=== PATIENT | male | born 1970 | race African-American/Black ===

== ENCOUNTER 2017-08-11 11:28 | Inpatient (IN) | payer OTHER ==
[2017-08-11 11:54] VITALS: BMI 26.8
--- NOTE | 2017-08-11 13:26 | HP ---
CIWA Score - CIWA Score Nausea/Vomitin-Mild Nausea/No Vomiting Muscle Tremors: 4-Moderate,w/Arms Extend Anxiety: 4-Mod. Anxious/Guarded Agitation: 4-Moderately Restless Paroxysmal Sweats: 1-Minimal Palms Moist Orientation: 3-Disoriented Date>2 days Tacttile Disturbances: 2-Mild Itch/Numbness/Burn Auditory Disturbances: 0-None Visual Disturbances: 0-None Headache: 0-None Present CIWA-Ar Total Score: 19 Admission ROS S - HPI Chief Complaint: withdrawal sx Allergies/Adverse Reactions: Allergies Allergy/AdvReac Type Severity Reaction Status Date / Time No Known Allergies Allergy Verified 08/11/17 13:22 History of Present Illness: 47 years old male with long history of alcohol nicotine dependence has depression is admitted to detox Exam Limitations: No Limitations - Ebola screening Have you traveled outside of the country in the last 21 days: No (N) Have you had contact with anyone from an Ebola affected area: No Have you been sick,other than usual withdrawal symptoms: No Do you have a fever: No - Review of Systems Constitutional: Changes in sleep, Weight Stable EENT: reports: No Symptoms Reported Respiratory: reports: No Symptoms reported Cardiac: reports: No Symptoms Reported GI: reports: Nausea, Poor Fluid Intake, Abdominal cramping : reports: No Symptoms Reported Musculoskeletal: reports: No Symptoms Reported Integumentary: reports: Lesions (arms legs lateral trunk upper chest) Neuro: reports: Tremors Endocrine: reports: No Symptoms Reported Hematology: reports: No Symptoms Reported Psychiatric: reports: Judgement Intact, Anxious, Depressed Other Systems: Reviewed and Negative Patient History - Patient Medical History Hx Anemia: No Hx Asthma: No Hx Chronic Obstructive Pulmonary Disease (COPD): No Hx Cancer: No Hx Cardiac Disorders: No Hx Congestive Heart Failure: No Hx Hypertension: No Hx Hypercholesterolemia: No Hx Pacemaker: No HX Cerebrovascular Accident: No Hx Seizures: No Hx Dementia: No Hx Diabetes: No Hx Gastrointestinal Disorders: No Hx Liver Disease: No Hx Genitourinary Disorders: No Hx Sexually Transmitted Disorders: No Hx Renal Disease (ESRD): No Hx Thyroid Disease: No Hx Human Immunodeficiency Virus (HIV): No Hx Hepatitis C: No Hx Depression: Yes Hx Suicide Attempt: No Hx Bipolar Disorder: No Hx Schizophrenia: No - Patient Surgical History Past Surgical History: Yes Other Surgical History: 2010 right neck + right arm from [facility] Anesthesia Reaction: No - PPD History Previous Implant?: Yes Documented Results: Negative w/o proof Implanted On Prior [facility] Admission?: No PPD to be Administered?: Yes - Smoking Cessation Smoking history: Current every day smoker Have you smoked in the past 12 months: Yes Aproximately how many cigarettes per day: 6 Cigars Per Day: 0 Hx Chewing Tobacco Use: No Initiated information on smoking cessation: Yes 'Breaking Loose' booklet given: 08/11/17 - Substance & Tx. History Hx Alcohol Use: Yes Hx Substance Use: No Substance Use Type: Alcohol Hx Substance Use Treatment: No (1st detox) - Substances Abused Alcohol Route: Oral Frequency: Daily Amount used: vodka x 2 pint+12ozx6 Age of first use: 15 Date of Last Use: 08/10/17 Family Disease History - Family Disease History Family Disease History: Heart Disease: Father, CA: Mother Admission Physical Exam [facility] - Vital Signs Vital Signs: Vital Signs - 24 hr 08/11/17 11:51 Temperature 97.9 F Pulse Rate 81 Respiratory 18 Rate Blood Pressure 155/86 - Physical General Appearance: Yes: Appropriately Dressed, Moderate Distress, Tremorous, Irritable, Sweating, Anxious HEENTM: Yes: Hearing grossly Normal, Normal ENT Inspection, Normocephalic, Normal Voice Respiratory: Yes: Chest Non-Tender, Lungs Clear, Normal Breath Sounds, No Respiratory Distress, No Accessory Muscle Use Neck: Yes: Supple, Trachea in good position Breast: Yes: Breasts Symetrical Cardiology: Yes: Regular Rhythm, Regular Rate, S1, S2 Abdominal: Yes: Normal Bowel Sounds, Non Tender, Soft Genitourinary: Yes: Within Normal Limits Back: Yes: Normal Inspection Musculoskeletal: Yes: full range of Motion, Gait Steady Extremities: Yes: Normal Inspection (psoriasis), Normal Range of Motion, Non- Tender, Tremors Neurological: Yes: Alert, Motor Strength 5/5, Normal Response, Depressed Affect Integumentary: Yes: Warm, Rash (psoriasis) Lymphatic: Yes: Within Normal Limits - Diagnostic (1) Alcohol dependence with uncomplicated withdrawal Current Visit: Yes Status: Acute (2) Depression (emotion) Current Visit: Yes Status: Suspected Qualifiers: Depression Type: dysthymia Qualified Code(s): F34.1 - Dysthymic disorder (3) Nicotine dependence Current Visit: Yes Status: Acute Qualifiers: Nicotine product type: cigarettes Substance use status: in withdrawal Qualified Code(s): F17.213 - Nicotine dependence, cigarettes, with withdrawal Cleared for Admission [facility] - Detox or Rehab [facility] Level of Care: Medically Managed Detox Regimen/Protocol: Librium [facility] Breath Alcohol Content Breath Alcohol Content: 0 Urine Drug Screen - Results Drug Screen Negative: Yes
[2017-08-11] MEDS ORDERED: guaiFENesin/D-METHORPHAN HB 10 ML UNIT-DOSE CUPS PO PRN (13:31)
[2017-08-11] MEDS ORDERED: NICOTINE POLACRILEX 2 MG GUM BUC PRN (13:31)
[2017-08-11] MEDS ORDERED: IBUPROFEN 400 MG TABLET (FP) PO PRN (13:31)
[2017-08-11] MEDS ORDERED: chlordiazePOXIDE HCL 25 MG CAPSULE PO PRN (13:31)
[2017-08-11] MEDS ORDERED: MENTHOL/PHENOL 1 EACH UD MM PRN (13:31)
[2017-08-11] MEDS ORDERED: MAG HYDROX/AL HYDROX/SIMETH 30 ML UNIT-DOSE CUP PO PRN (13:31)
[2017-08-11] MEDS ORDERED: ACETAMINOPHEN 325 MG TABLET (FP) PO PRN (13:31)
[2017-08-11] MEDS ORDERED: P-EPHED 60MG/TRIPROLIDI 2.5MG TABLET PO PRN (13:31)
[2017-08-11] MEDS ORDERED: MAGNESIUM CITRATE 300 ML BOTTLE PO PRN (13:31)
[2017-08-11] MEDS ORDERED: MAGNESIUM HYDROX 2400MG/30ML ORAL SUSPENSION 30 ML CUP PO PRN (13:31)
[2017-08-11] MEDS ORDERED: LOPERAMIDE HCL 2 MG CAPSULE PO PRN (13:31)
[2017-08-11] MEDS ORDERED: COLLOIDAL OATMEAL 1 BAR EACH TP PRN (13:39)
[2017-08-11] MEDS: chlordiazePOXIDE HCL 25 MG CAPSULE PO SCH ×2 (16:55→22:24)
[2017-08-11] MEDS: THIAMINE HCL 100 MG TABLET (FP) PO SCH (22:24)
[2017-08-11] MEDS: MINERAL OIL/PETROLAT/WATER TOPICAL CREAM 113 GM JAR TP SCH (22:26)
[2017-08-11 23:08] LABS: URINE APPEARANCE CLEAR; URINE BILIRUBIN NEGATIVE (NEGATIVE); URINE BLOOD NEGATIVE (NEGATIVE); URINE COLOR YELLOW; URINE GLUCOSE (UA) NEGATIVE (NEGATIVE); URINE KETONE NEGATIVE (NEGATIVE); URINE LEUK ESTERASE NEGATIVE (NEGATIVE); URINE NITRITE NEGATIVE (NEGATIVE); URINE PROTEIN NEGATIVE (NEGATIVE); URINE UROBILINOGEN 4.0 E.U/dl mg/dL (0.2-1.0)
[2017-08-12] MEDS: chlordiazePOXIDE HCL 25 MG CAPSULE PO SCH ×5 (06:19→22:13)
[2017-08-12 09:56] LABS: HEMATOCRIT 38.9 % (35.4-49); HEMOGLOBIN 12.5 GM/dL (11.7-16.9); MCH 31.2 pg (25.7-33.7); MCHC 32.2 g/dl (32.0-35.9); MEAN CELL VOLUME 97.1 fl (80-96); MEAN PLT VOLUME 8.9 fl (7.5-11.1); PLATELET COUNT 228 K/MM3 (134-434); RBC 4.01 M/mm3 (4.00-5.60); RDW 13.7 % (11.9-15.9); WHITE BLOOD COUNT 8.8 K/mm3 (4.0-10.0)
[2017-08-12 10:41] LABS: CHLORIDE 100 mmol/L (98-107); POTASSIUM 3.6 mmol/L (3.5-5.1); SODIUM 139 mmol/L (136-145)
[2017-08-12 10:46] LABS: ALBUMIN 3.8 g/dl (3.4-5.0); ALK PHOS 76 U/L (45-117); ANION GAP 9 (8-16); BILIRUBIN,TOTAL 0.5 mg/dL (0.2-1.0); BLOOD UREA NITROGEN 7 mg/dL (7-18); CALCIUM 9.2 mg/dL (8.5-10.1); CO2 30 mmol/L (21-32); CREATININE 0.8 mg/dL (0.7-1.3); GLUCOSE,RANDOM 92 mg/dL (74-106); SGOT/AST 68 U/L (15-37); SGPT/ALT 65 U/L (12-78); TOT PROT 7.4 g/dl (6.4-8.2)
[2017-08-12] MEDS: PRENATAL VITAMINS W/ FOLIC ACID TABLET (FP) PO SCH (10:55)
[2017-08-12] MEDS: NICOTINE 14 MG/24 HOURS TOPICAL PATCH TD SCH (10:55)
--- NOTE | 2017-08-12 12:45 | PN ---
[facility] CIWA - CIWA Score Nausea/Vomitin-No Nausea/No Vomiting Muscle Tremors: 3 Anxiety: 4-Mod. Anxious/Guarded Agitation: 2 Paroxysmal Sweats: 2 Orientation: 0-Oriented Tacttile Disturbances: 3-Moderate Itch/Numb/Burn Auditory Disturbances: 0-None Visual Disturbances: 3-Moderate Sensitivity Headache: 0-None Present CIWA-Ar Total Score: 17 BHS Progress Note (SOAP) Subjective: Interrupted sleep, Tremors, Fatigue, Sweating. Objective: PT. A & O X 3, OBSERVED AMBULATING ON UNIT. NO ACUTE DISTRESS. 08/12/17 12:42 Vital Signs Temperature 96.2 F L 08/12/17 09:58 Pulse Rate 76 08/12/17 09:58 Respiratory Rate 20 08/12/17 09:58 Blood Pressure 119/83 08/12/17 09:58 O2 Sat by Pulse Oximetry (%) Laboratory Tests 08/11/17 08/12/17 08/12/17 22:50 05:45 05:45 WBC 8.8 RBC 4.01 Hgb 12.5 Hct 38.9 MCV 97.1 H MCH 31.2 MCHC 32.2 RDW 13.7 Plt Count 228 MPV 8.9 Sodium 139 Potassium 3.6 Chloride 100 Carbon Dioxide 30 Anion Gap 9 BUN 7 Creatinine 0.8 Creat Clearance w eGFR > 60 Random Glucose 92 Calcium 9.2 Total Bilirubin 0.5 AST 68 H ALT 65 Alkaline Phosphatase 76 Total Protein 7.4 Albumin 3.8 Urine Color Yellow Urine Appearance Clear Urine pH 7.0 Ur Specific [place] 1.014 Urine Protein Negative Urine Glucose (UA) Negative Urine Ketones Negative Urine Blood Negative Urine Nitrite Negative Urine Bilirubin Negative Urine Urobilinogen 4.0 e.u/dl Ur Leukocyte Esterase Negative RPR Titer 08/12/17 05:45 WBC RBC Hgb Hct MCV MCH MCHC RDW Plt Count MPV Sodium Potassium Chloride Carbon Dioxide Anion Gap BUN Creatinine Creat Clearance w eGFR Random Glucose Calcium Total Bilirubin AST ALT Alkaline Phosphatase Total Protein Albumin Urine Color Urine Appearance Urine pH Ur Specific [place] Urine Protein Urine Glucose (UA) Urine Ketones Urine Blood Urine Nitrite Urine Bilirubin Urine Urobilinogen Ur Leukocyte Esterase RPR Titer Nonreactive LABS NOTED. Assessment: 08/12/17 12:43 WITHDRAWAL SYMPTOMS. Plan: CONTINUE DETOX.
--- NOTE | 2017-08-12 14:00 | EKG ---
Test Reason : Blood Pressure : / mmHG Vent. Rate : 072 BPM Atrial Rate : 072 BPM P-R Int : 122 ms QRS Dur : 088 ms QT Int : 372 ms P-R-T Axes : 051 029 025 degrees QTc Int : 407 ms NORMAL SINUS RHYTHM NORMAL ECG NO PREVIOUS ECGS AVAILABLE Confirmed by MD Oly, Dario ([id number]) on 08/12/2017 2:00:08 PM Referred By: Confirmed By:Dario Aldridge MD
--- NOTE | 2017-08-12 14:29 | CONSULT ---
[facility] Psychiatric Consult - Data Date of interview: 08/12/17 Admission source: [facility] Identifying data: Pt. is a 47 year old single male, father of two, unemployed and homeless. This [place] patient[place] [facility] Pt. admitted to for alcohol dependence. Substance Abuse History: Following information confirmed with Mr. Ramirez: Smoking Cessation. Smoking history: Current every day smoker. Have you smoked in the past 12 months: Yes. Aproximately how many cigarettes per day: 6. Cigars Per Day: 0. Hx Chewing Tobacco Use: No. Initiated information on smoking cessation: Yes. 'Breaking Loose' booklet given: 08/11/17. - Substance & Tx. History. Hx Alcohol Use: Yes. Hx Substance Use: No. Substance Use Type : Alcohol. Hx Substance Use Treatment: No (1st detox). - Substances Abused. * * Alcohol. Route: Oral. Frequency: Daily. Amount used: vodka x 2 pint+ 12ozx6. Age of first use: 15. Date of Last Use: 08/10/17 Medical History: Denies. Psychiatric History: Pt. reports approximately five psychiatric hospitalizations. States he was most recently admitted to [facility] in November 2016 for depression. Pt. reports outpatient care at a private clinic in [place]. Claims to be on psychotrophic medications but is unable to recall the names and dosages. Pt. unaware of his diagnosis. Pt. is a poor historian. Patient's pharmacy called, [facility] on [address], #[phone] and able to speak to phamacist staff. Staff stated patient picked up a prescription of risperdal 0.5mg qhs and Mirtzapine 7.5mg qhs on Feb 18, 2017 and Lexapro 10mg in August of 2009. Pt. denies h/o suicide attempts. Pt. reports taking the risperdal and mirtzapine a few days ago. Pt. denies suicidal and homicidal ideation. Physical/Sexual Abuse/Trauma History: Denies. Mental Status Exam - Mental Status Exam Alert and Oriented to: Time, Place, Person Cognitive Function: Fair Patient Appearance: Well Groomed Mood: Euthymic Affect: Mood Congruent Patient Behavior: Guarded, Cooperative Speech Pattern: Delayed Voice Loudness: Moderately Soft/Quiet Thought Process: Goal Oriented Thought Disorder: Not Present Hallucinations: Denies Suicidal Ideation: Denies Homicidal Ideation: Denies Insight/Judgement: Poor Sleep: Fair Appetite: Good Muscle strength/Tone: Normal Gait/Station: Normal Psychiatric Findings - Problem List ([place] 1, 2,3) (1) Alcohol dependence with uncomplicated withdrawal Status: Acute (2) Nicotine dependence Status: Acute Qualifiers: Nicotine product type: cigarettes Substance use status: in withdrawal Qualified Code(s): F17.213 - Nicotine dependence, cigarettes, with withdrawal (3) Substance induced mood disorder Status: Suspected - Initial Treatment Plan Initial Treatment Plan: Psychoeducation provided. Detoxification in provided. Risperdal 0.5mg qhs and Mirtzapine 7.5 mg qhs ordered. Benefits and side effects discussed. Pt. made aware of the risk of abnormal involunatry movements, gynecomastia, and hyperprolactinemia. Verbal consent given. Will continue to monitor.
[2017-08-12] MEDS: THIAMINE HCL 100 MG TABLET (FP) PO SCH (22:13)
[2017-08-12] MEDS: risperiDONE 0.5 MG TABLET (FP) PO SCH (22:13)
[2017-08-12] MEDS: MIRTAZAPINE 15 MG TABLET (FP) PO SCH (22:14)
[2017-08-12] MEDS: MINERAL OIL/PETROLAT/WATER TOPICAL CREAM 113 GM JAR TP SCH (22:16)
[2017-08-13] MEDS: chlordiazePOXIDE HCL 25 MG CAPSULE PO SCH ×2 (06:00→10:47)
[2017-08-13] MEDS: PRENATAL VITAMINS W/ FOLIC ACID TABLET (FP) PO SCH (10:47)
[2017-08-13] MEDS: NICOTINE 14 MG/24 HOURS TOPICAL PATCH TD SCH (10:48)
--- NOTE | 2017-08-13 12:25 | PN ---
[facility] CIWA - CIWA Score Nausea/Vomitin-No Nausea/No Vomiting Muscle Tremors: 2 Anxiety: 4-Mod. Anxious/Guarded Agitation: 3 Paroxysmal Sweats: 2 Orientation: 2-Disoriented Date<2 days Tacttile Disturbances: 2-Mild Itch/Numbness/Burn Auditory Disturbances: 0-None Visual Disturbances: 1-Very Mild Sensitivity Headache: 0-None Present CIWA-Ar Total Score: 16 S Progress Note (SOAP) Subjective: Anxious, Tremors, Sweating. Objective: PT. A & O X 2 (UNCERTAIN ABOUT CURRENT DAY/ DATE). PT. OBSERVED AMBULATING ON UNIT. NO ACUTE DISTRESS. 08/13/17 12:23 Vital Signs Temperature 97.4 F L 08/13/17 09:52 Pulse Rate 85 08/13/17 09:52 Respiratory Rate 18 08/13/17 09:52 Blood Pressure 109/74 08/13/17 09:52 O2 Sat by Pulse Oximetry (%) Laboratory Tests 08/11/17 08/12/17 08/12/17 22:50 05:45 05:45 WBC 8.8 RBC 4.01 Hgb 12.5 Hct 38.9 MCV 97.1 H MCH 31.2 MCHC 32.2 RDW 13.7 Plt Count 228 MPV 8.9 Sodium 139 Potassium 3.6 Chloride 100 Carbon Dioxide 30 Anion Gap 9 BUN 7 Creatinine 0.8 Creat Clearance w eGFR > 60 Random Glucose 92 Calcium 9.2 Total Bilirubin 0.5 AST 68 H ALT 65 Alkaline Phosphatase 76 Total Protein 7.4 Albumin 3.8 Urine Color Yellow Urine Appearance Clear Urine pH 7.0 Ur Specific [place] 1.014 Urine Protein Negative Urine Glucose (UA) Negative Urine Ketones Negative Urine Blood Negative Urine Nitrite Negative Urine Bilirubin Negative Urine Urobilinogen 4.0 e.u/dl Ur Leukocyte Esterase Negative RPR Titer 08/12/17 05:45 WBC RBC Hgb Hct MCV MCH MCHC RDW Plt Count MPV Sodium Potassium Chloride Carbon Dioxide Anion Gap BUN Creatinine Creat Clearance w eGFR Random Glucose Calcium Total Bilirubin AST ALT Alkaline Phosphatase Total Protein Albumin Urine Color Urine Appearance Urine pH Ur Specific [place] Urine Protein Urine Glucose (UA) Urine Ketones Urine Blood Urine Nitrite Urine Bilirubin Urine Urobilinogen Ur Leukocyte Esterase RPR Titer Nonreactive LABS NOTED. Assessment: 08/13/17 12:24 WITHDRAWAL SYMPTOMS. Plan: CONTINUE DETOX. INCREASE DAILY PO FLUID INTAKE.
[2017-08-13] MEDS: chlordiazePOXIDE 5 MG CAPSULE PO SCH ×2 (18:17→22:07)
[2017-08-13] MEDS: THIAMINE HCL 100 MG TABLET (FP) PO SCH (22:07)
[2017-08-13] MEDS: MIRTAZAPINE 15 MG TABLET (FP) PO SCH (22:08)
[2017-08-13] MEDS: risperiDONE 0.5 MG TABLET (FP) PO SCH (22:08)
[2017-08-13] MEDS: MINERAL OIL/PETROLAT/WATER TOPICAL CREAM 113 GM JAR TP SCH (22:49)
[2017-08-14] MEDS: chlordiazePOXIDE 5 MG CAPSULE PO SCH ×2 (05:21→10:19)
[2017-08-14] MEDS: NICOTINE 14 MG/24 HOURS TOPICAL PATCH TD SCH (10:19)
[2017-08-14] MEDS: PRENATAL VITAMINS W/ FOLIC ACID TABLET (FP) PO SCH (10:19)
--- NOTE | 2017-08-14 12:01 | PN ---
[facility] Progress Note (SOAP) Subjective: Constipation, Stomach Cramping, Anxious. Objective: PT. A & O X 3, OBSERVED AMBULATING ON UNIT. NO ACUTE DISTRESS. 08/14/17 12:00 Vital Signs Temperature 98.6 F 08/14/17 09:30 Pulse Rate 83 08/14/17 09:30 Respiratory Rate 18 08/14/17 09:30 Blood Pressure 120/84 08/14/17 09:30 O2 Sat by Pulse Oximetry (%) Laboratory Tests 08/11/17 08/12/17 08/12/17 22:50 05:45 05:45 WBC 8.8 RBC 4.01 Hgb 12.5 Hct 38.9 MCV 97.1 H MCH 31.2 MCHC 32.2 RDW 13.7 Plt Count 228 MPV 8.9 Sodium 139 Potassium 3.6 Chloride 100 Carbon Dioxide 30 Anion Gap 9 BUN 7 Creatinine 0.8 Creat Clearance w eGFR > 60 Random Glucose 92 Calcium 9.2 Total Bilirubin 0.5 AST 68 H ALT 65 Alkaline Phosphatase 76 Total Protein 7.4 Albumin 3.8 Urine Color Yellow Urine Appearance Clear Urine pH 7.0 Ur Specific [place] 1.014 Urine Protein Negative Urine Glucose (UA) Negative Urine Ketones Negative Urine Blood Negative Urine Nitrite Negative Urine Bilirubin Negative Urine Urobilinogen 4.0 e.u/dl Ur Leukocyte Esterase Negative RPR Titer 08/12/17 05:45 WBC RBC Hgb Hct MCV MCH MCHC RDW Plt Count MPV Sodium Potassium Chloride Carbon Dioxide Anion Gap BUN Creatinine Creat Clearance w eGFR Random Glucose Calcium Total Bilirubin AST ALT Alkaline Phosphatase Total Protein Albumin Urine Color Urine Appearance Urine pH Ur Specific [place] Urine Protein Urine Glucose (UA) Urine Ketones Urine Blood Urine Nitrite Urine Bilirubin Urine Urobilinogen Ur Leukocyte Esterase RPR Titer Nonreactive LABS NOTED. Assessment: 08/14/17 12:00 WITHDRAWAL SYMPTOMS. Plan: CONTINUE DETOX. INCREASE DAILY PO FLUID INTAKE.
[2017-08-14] MEDS ORDERED: hydrOXYzine PAMOATE 50 MG CAPSULE (FP) PO ONE (15:30)
--- NOTE | 2017-08-14 16:38 | PN ---
Psychiatric Progress Note Vital Signs: Vital Signs Period Temp Pulse Resp BP Sys/Snyder Pulse Ox Last 24 Hr 96.9 F-98.6 F 77-83 18-18 111-120/79-85 Date of Session: 08/14/17 Chief Complaint:: "I feeling like jumping through the window" ROS: unremarkable Current Medications: Active Medications Generic Name Dose Route Start Last Admin Trade Name Freq PRN Reason Stop Dose Admin Acetaminophen 650 mg 08/11/17 13:31 Tylenol - PO Q4H PRN FEVER Al Hydroxide/Mg Hydroxide 30 ml 08/11/17 13:31 Mylanta Oral Suspension - PO Q6H PRN DYSPEPSIA Chlordiazepoxide HCl 10 mg 08/14/17 17:00 Librium - PO 08/15/17 11:01 [id number] CATHERINE Colloidal Oatmeal 1 applic 08/11/17 13:39 08/11/17 22:29 Aveeno Soap - TP 1 applic DAILY PRN Administration HYGEINE Eucalyptus/Menthol/Phenol/Sorbitol 1 each 08/11/17 13:31 Cepastat Lozenge - MM Q4H PRN SORE THROAT Guaifenesin 10 ml 08/11/17 13:31 Robitussin Dm - PO Q6H PRN COUGH Ibuprofen 400 mg 08/11/17 13:31 Motrin - PO Q6H PRN PAIN LEVEL 4-6 Loperamide HCl 4 mg 08/11/17 13:31 Imodium - PO Q6H PRN DIARRHEA Magnesium Citrate 300 ml 08/11/17 13:31 Citroma - PO Q48H PRN CONSTIPATION Magnesium Hydroxide 30 ml 08/11/17 13:31 Milk Of Magnesia - PO DAILY PRN CONSTIPATION Mirtazapine 7.5 mg 08/12/17 22:00 08/13/17 22:08 Remeron - PO 7.5 mg HS CATHERINE Administration Multi-Ingredient Lotion 1 applic 08/11/17 22:00 08/13/17 22:49 Eucerin (Small Jar) - TP Not Given HS CATHERINE Nicotine 14 mg 08/12/17 10:00 08/14/17 10:19 Nicoderm Patch - TD Not Given DAILY CATHERINE Nicotine Polacrilex 2 mg 08/11/17 13:31 Nicorette Gum - BUC Q2H PRN NICOTINE REPLACEMENT RX Multivit/Folic Acid/Iron 1 tab 08/12/17 10:00 08/14/17 10:19 Vitamins ([facility]) - PO 1 tab DAILY CATHERINE Administration Pseudoephedrine/Triprolidine 1 combo 08/11/17 13:31 Actifed - PO TID PRN NASAL CONGESTION Risperidone 0.5 mg 08/12/17 22:00 08/13/17 22:08 Risperdal - PO 0.5 mg HS CATHERINE Administration Thiamine HCl 100 mg 08/11/17 22:00 08/13/17 22:07 Vitamin B1 - PO 100 mg HS CATHERINE Administration Medication(s) Change(s): One time dose of vistaril 50mg ordered. Current Side Effect: No Lab tests ordered: No Lab tests reviewed: Yes Provider note:: Innovation Manager contacted by staff on [facility] reguarding patient's suicidal comment, " I just want to jump out the window". Innovation Manager approached patient concerning his suicidal statment. Pt. reports feelings of frustration after being notified that DSS (department of social service) "cut off his insurance." Pt. was ready to be discharged to a termite technician facility as early as tomorrow but due to his lack of insurance patient will not be placed at a termite technician facility. Pt. states he became frustrated and stated, " I just want to jump out the window." Pt. denies thought or urges to hurt himself and stated that his negative comment was a "figure of speech" but was not having thoughts to hurt himself. Pt. made aware that comments in reference to hurting himself or others are taken very serious and the need for a psychatric evaluation is immediately neccessary. As per history, patient denies h/o suicide attempt. Pt. able to express his frustration. Patient's feeling acknowledged. Psychoeducation provided. Patient was satisifed and receptive to feedback. One time dose of vistaril 50mg given to patient. Medication with good effect. Will continue to monitor patient. Total face to face time:: 40 Mental Status Exam - Mental Status Exam Alert and Oriented to: Time, Place, Person Cognitive Function: Good Patient Appearance: Well Groomed Mood: Anxious, Hopeful (Patient agitated and anxious but able to calm down.) Affect: Appropriate Patient Behavior: Cooperative, Agitated (Pt agitated at first then able to cooperate with teletypewriter operator. ) Speech Pattern: Appropriate Voice Loudness: Normal Thought Process: Goal Oriented Thought Disorder: Not Present Hallucinations: Denies Suicidal Ideation: Denies Homicidal Ideation: Denies Insight/Judgement: Poor Sleep: Fair Appetite: Fair Muscle strength/Tone: Normal Gait/Station: Normal Psychiatric Treatment Plan - Problem List (1) Alcohol dependence with uncomplicated withdrawal Current Visit: Yes (2) Nicotine dependence Current Visit: Yes Qualifiers: Nicotine product type: cigarettes Substance use status: in withdrawal Qualified Code(s): F17.213 - Nicotine dependence, cigarettes, with withdrawal (3) Substance induced mood disorder Current Visit: Yes
[2017-08-14] MEDS: chlordiazePOXIDE HCL 10 MG CAPSULE PO SCH ×2 (17:03→22:06)
[2017-08-14] MEDS: MINERAL OIL/PETROLAT/WATER TOPICAL CREAM 113 GM JAR TP SCH (22:05)
[2017-08-14] MEDS: THIAMINE HCL 100 MG TABLET (FP) PO SCH (22:06)
[2017-08-14] MEDS: risperiDONE 0.5 MG TABLET (FP) PO SCH (22:06)
[2017-08-14] MEDS: MIRTAZAPINE 15 MG TABLET (FP) PO SCH (22:06)
[2017-08-15] MEDS: chlordiazePOXIDE HCL 10 MG CAPSULE PO SCH (05:45)
[2017-08-15 09:42] VITALS: BP 114/81; PULSE 83; TEMP 97
--- NOTE | 2017-08-15 11:57 | DS ---
[facility] Detox Discharge Summary Admission Date: 08/11/17 Discharge Date: 08/15/17 - History Present History: Alcohol Dependence Additional Comments: PATIENT GOING TO [facility] ([facility]) FOR AFTERCARE. PATIENT WAS DISCHARGED FROM DETOX UNIT IN STABLE MEDICAL CONDITION. Pertinent Past History: Depression, Nicotine Dependence. - Physical Exam Results Vital Signs: Vital Signs Temperature 97.0 F L 08/15/17 09:42 Pulse Rate 83 08/15/17 09:42 Respiratory Rate 18 08/15/17 09:42 Blood Pressure 114/81 08/15/17 09:42 O2 Sat by Pulse Oximetry (%) Pertinent Admission Physical Exam Findings: WITHDRAWAL SYMPTOMS. Laboratory Tests 08/11/17 08/12/17 08/12/17 22:50 05:45 05:45 WBC 8.8 RBC 4.01 Hgb 12.5 Hct 38.9 MCV 97.1 H MCH 31.2 MCHC 32.2 RDW 13.7 Plt Count 228 MPV 8.9 Sodium 139 Potassium 3.6 Chloride 100 Carbon Dioxide 30 Anion Gap 9 BUN 7 Creatinine 0.8 Creat Clearance w eGFR > 60 Random Glucose 92 Calcium 9.2 Total Bilirubin 0.5 AST 68 H ALT 65 Alkaline Phosphatase 76 Total Protein 7.4 Albumin 3.8 Urine Color Yellow Urine Appearance Clear Urine pH 7.0 Ur Specific [employer] 1.014 Urine Protein Negative Urine Glucose (UA) Negative Urine Ketones Negative Urine Blood Negative Urine Nitrite Negative Urine Bilirubin Negative Urine Urobilinogen 4.0 e.u/dl Ur Leukocyte Esterase Negative RPR Titer 08/12/17 05:45 WBC RBC Hgb Hct MCV MCH MCHC RDW Plt Count MPV Sodium Potassium Chloride Carbon Dioxide Anion Gap BUN Creatinine Creat Clearance w eGFR Random Glucose Calcium Total Bilirubin AST ALT Alkaline Phosphatase Total Protein Albumin Urine Color Urine Appearance Urine pH Ur Specific [employer] Urine Protein Urine Glucose (UA) Urine Ketones Urine Blood Urine Nitrite Urine Bilirubin Urine Urobilinogen Ur Leukocyte Esterase RPR Titer Nonreactive LABS NOTED. - Treatment Hospital Course: Detox Protocol Followed, Detoxed Safely, Responded well, Discharged Condition Good, Rehab Referral Accepted Patient has Accepted a Rehab Referral to: [facility] ([facility]) . - Medication Discharge Medications: Ambulatory Orders Unobtainable [Unobtainable] 02/12/18 - Diagnosis (1) Alcohol dependence with uncomplicated withdrawal Status: Acute (2) Nicotine dependence Status: Acute Qualifiers: Nicotine product type: cigarettes Substance use status: in withdrawal Qualified Code(s): F17.213 - Nicotine dependence, cigarettes, with withdrawal (3) Depression (emotion) Status: Suspected Qualifiers: Depression Type: dysthymia Qualified Code(s): F34.1 - Dysthymic disorder (4) Substance induced mood disorder Status: Suspected - AMA Did Patient Leave Against Medical Advice: No
== END 2017-08-15 09:54 | disposition home or self-care (01) | DRG 775 ==
LOC: YASAS 11:28 → Y3N 15:22
PROVIDERS: ADMIT Internal Medicine; ATTEND Internal Medicine
PROC: HZ2ZZZZ Detoxification Services for Substance Abuse Treatment (ICD-10-PCS; principal; 2017-08-11)
DX: F10.230 Alcohol dependence with withdrawal, uncomplicated (principal); F17.213 Nicotine dependence, cigarettes, with withdrawal; F34.1 Dysthymic disorder; F19.24 Other psychoactive substance dependence with psychoactive substance-induced mood disorder
CPT/HCPCS: 36415; 80053; 81003; 85027; 86593; 93005; 93010

== ENCOUNTER 2017-08-15 18:18 | Inpatient (IN) | payer OTHER ==
[2017-08-15 20:58] VITALS: BMI 27.4
--- NOTE | 2017-08-15 22:43 | HP ---
[facility] Re[facility] Assess/Revision - Admission History Admitted to Rehab from: [facility] Date of Admission to Rehab: 08/15/2017 - Vital signs Vital Signs: Vital Signs Period Temp Pulse Resp BP Sys/Snyder Pulse Ox Last 24 Hr 97.5 F 97 20 133/95 - Findings Detox History & Physical reviewed: Yes Concur with findings: Yes Inpatient Rehab Admission - Initial Determination Are CD services needed?: Yes Free of communicable disease: Yes Not in need of hospitalization: Yes - Rehab Admission Criteria Previous failed treatment: Yes Poor recovery environment: Yes Comorbidities: Yes Lacks judgement: Yes Patient is meeting Inpatient Rehab admission criteria:: Yes
[2017-08-15] MEDS ORDERED: MAGNESIUM HYDROX 2400MG/30ML ORAL SUSPENSION 30 ML CUP PO PRN (22:44)
[2017-08-15] MEDS ORDERED: ACETAMINOPHEN 325 MG TABLET (FP) PO PRN (22:44)
[2017-08-15] MEDS ORDERED: NICOTINE POLACRILEX 2 MG GUM BUC PRN (22:44)
[2017-08-15] MEDS ORDERED: MAGNESIUM CITRATE 300 ML BOTTLE PO PRN (22:44)
[2017-08-15] MEDS ORDERED: hydrOXYzine PAMOATE 50 MG CAPSULE (FP) PO PRN (22:44)
[2017-08-15] MEDS ORDERED: guaiFENesin/D-METHORPHAN HB 10 ML UNIT-DOSE CUPS PO PRN (22:44)
[2017-08-15] MEDS ORDERED: MAG HYDROX/AL HYDROX/SIMETH 30 ML UNIT-DOSE CUP PO PRN (22:44)
[2017-08-15] MEDS ORDERED: IBUPROFEN 400 MG TABLET (FP) PO PRN (22:44)
[2017-08-15] MEDS ORDERED: LOPERAMIDE HCL 2 MG CAPSULE PO PRN (22:44)
[2017-08-15] MEDS ORDERED: P-EPHED 60MG/TRIPROLIDI 2.5MG TABLET PO PRN (22:44)
[2017-08-15] MEDS ORDERED: MENTHOL/PHENOL 1 EACH UD MM PRN (22:44)
[2017-08-16] MEDS ORDERED: COLLOIDAL OATMEAL 1 BAR EACH TP PRN (07:48)
[2017-08-16] MEDS: PRENATAL VITAMINS W/ FOLIC ACID TABLET (FP) PO SCH (10:26)
[2017-08-16] MEDS: NICOTINE 14 MG/24 HOURS TOPICAL PATCH TD SCH (10:26)
[2017-08-16] MEDS: THIAMINE HCL 100 MG TABLET (FP) PO SCH (21:37)
[2017-08-16] MEDS: risperiDONE 0.5 MG TABLET (FP) PO SCH (21:37)
[2017-08-16] MEDS: MIRTAZAPINE 15 MG TABLET (FP) PO SCH (21:37)
[2017-08-16] MEDS ORDERED: PT OWN MED DRAWER 7, Y5N ONE (23:05)
[2017-08-17] MEDS: PRENATAL VITAMINS W/ FOLIC ACID TABLET (FP) PO SCH (10:28)
[2017-08-17] MEDS: NICOTINE 14 MG/24 HOURS TOPICAL PATCH TD SCH (10:29)
[2017-08-17] MEDS ORDERED: PT OWN MED DRAWER 7, Y5N ONE (13:16)
[2017-08-17] MEDS: THIAMINE HCL 100 MG TABLET (FP) PO SCH (22:03)
[2017-08-17] MEDS: MIRTAZAPINE 15 MG TABLET (FP) PO SCH (22:03)
[2017-08-17] MEDS: risperiDONE 0.5 MG TABLET (FP) PO SCH (22:03)
[2017-08-18] MEDS: NICOTINE 14 MG/24 HOURS TOPICAL PATCH TD SCH (10:37)
[2017-08-18] MEDS: PRENATAL VITAMINS W/ FOLIC ACID TABLET (FP) PO SCH (10:37)
--- NOTE | 2017-08-18 14:15 | PN ---
[facility] Progress Note (SOAP) Subjective: requesting to use ownhair gel has it idownstairs, clear tube Objective: 08/18/17 14:14 Vital Signs - 24 hr 08/18/17 08/18/17 08/18/17 00:30 03:30 07:11 Temperature 97.6 F Pulse Rate 85 Respiratory 16 16 18 Rate Blood Pressure 124/75 labs reviewed Assessment: 08/18/17 14:15 reviewed labwork, jonathonn may use own hairgel
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
[2017-08-18] MEDS: THIAMINE HCL 100 MG TABLET (FP) PO SCH (21:25)
[2017-08-18] MEDS: risperiDONE 0.5 MG TABLET (FP) PO SCH (21:25)
[2017-08-18] MEDS: MIRTAZAPINE 15 MG TABLET (FP) PO SCH (21:26)
[2017-08-19] MEDS: NICOTINE 14 MG/24 HOURS TOPICAL PATCH TD SCH (10:21)
[2017-08-19] MEDS: PRENATAL VITAMINS W/ FOLIC ACID TABLET (FP) PO SCH (10:21)
[2017-08-19] MEDS: THIAMINE HCL 100 MG TABLET (FP) PO SCH (21:38)
[2017-08-19] MEDS: risperiDONE 0.5 MG TABLET (FP) PO SCH (21:38)
[2017-08-19] MEDS: MIRTAZAPINE 15 MG TABLET (FP) PO SCH (21:39)
[2017-08-20] MEDS: PRENATAL VITAMINS W/ FOLIC ACID TABLET (FP) PO SCH (10:59)
[2017-08-20] MEDS: NICOTINE 14 MG/24 HOURS TOPICAL PATCH TD SCH (11:00)
[2017-08-20] MEDS: THIAMINE HCL 100 MG TABLET (FP) PO SCH (21:45)
[2017-08-20] MEDS: risperiDONE 0.5 MG TABLET (FP) PO SCH (21:46)
[2017-08-20] MEDS: MIRTAZAPINE 15 MG TABLET (FP) PO SCH (21:46)
[2017-08-21] MEDS: NICOTINE 14 MG/24 HOURS TOPICAL PATCH TD SCH (09:56)
[2017-08-21] MEDS: PRENATAL VITAMINS W/ FOLIC ACID TABLET (FP) PO SCH (09:56)
[2017-08-21] MEDS: MIRTAZAPINE 15 MG TABLET (FP) PO SCH (21:35)
[2017-08-21] MEDS: THIAMINE HCL 100 MG TABLET (FP) PO SCH (21:35)
[2017-08-21] MEDS: risperiDONE 0.5 MG TABLET (FP) PO SCH (21:35)
[2017-08-22] MEDS: PRENATAL VITAMINS W/ FOLIC ACID TABLET (FP) PO SCH (09:39)
[2017-08-22] MEDS: NICOTINE 14 MG/24 HOURS TOPICAL PATCH TD SCH (09:40)
[2017-08-22] MEDS: MIRTAZAPINE 15 MG TABLET (FP) PO SCH (21:09)
[2017-08-22] MEDS: risperiDONE 0.5 MG TABLET (FP) PO SCH (21:09)
[2017-08-22] MEDS: THIAMINE HCL 100 MG TABLET (FP) PO SCH (21:09)
[2017-08-23] MEDS: NICOTINE 14 MG/24 HOURS TOPICAL PATCH TD SCH (10:22)
[2017-08-23] MEDS: PRENATAL VITAMINS W/ FOLIC ACID TABLET (FP) PO SCH (10:23)
[2017-08-23] MEDS: THIAMINE HCL 100 MG TABLET (FP) PO SCH (21:47)
[2017-08-23] MEDS: MIRTAZAPINE 15 MG TABLET (FP) PO SCH (21:47)
[2017-08-23] MEDS: risperiDONE 0.5 MG TABLET (FP) PO SCH (21:47)
[2017-08-23] MEDS ORDERED: PT OWN MED DRAWER 7, Y5N ONE (23:25)
[2017-08-24] MEDS: NICOTINE 14 MG/24 HOURS TOPICAL PATCH TD SCH (10:02)
[2017-08-24] MEDS: PRENATAL VITAMINS W/ FOLIC ACID TABLET (FP) PO SCH (10:02)
[2017-08-24] MEDS: MIRTAZAPINE 15 MG TABLET (FP) PO SCH (22:15)
[2017-08-24] MEDS: THIAMINE HCL 100 MG TABLET (FP) PO SCH (22:15)
[2017-08-24] MEDS: risperiDONE 0.5 MG TABLET (FP) PO SCH (22:15)
[2017-08-25] MEDS: NICOTINE 14 MG/24 HOURS TOPICAL PATCH TD SCH (09:41)
[2017-08-25] MEDS: PRENATAL VITAMINS W/ FOLIC ACID TABLET (FP) PO SCH (09:41)
[2017-08-25] MEDS: THIAMINE HCL 100 MG TABLET (FP) PO SCH (21:44)
[2017-08-25] MEDS: risperiDONE 0.5 MG TABLET (FP) PO SCH (21:44)
[2017-08-25] MEDS: MIRTAZAPINE 15 MG TABLET (FP) PO SCH (21:44)
[2017-08-26] MEDS: PRENATAL VITAMINS W/ FOLIC ACID TABLET (FP) PO SCH (10:16)
[2017-08-26] MEDS: NICOTINE 14 MG/24 HOURS TOPICAL PATCH TD SCH (10:16)
[2017-08-26] MEDS: MIRTAZAPINE 15 MG TABLET (FP) PO SCH (21:57)
[2017-08-26] MEDS: THIAMINE HCL 100 MG TABLET (FP) PO SCH (21:57)
[2017-08-26] MEDS: risperiDONE 0.5 MG TABLET (FP) PO SCH (21:57)
[2017-08-27] MEDS: PRENATAL VITAMINS W/ FOLIC ACID TABLET (FP) PO SCH (10:07)
[2017-08-27] MEDS: NICOTINE 14 MG/24 HOURS TOPICAL PATCH TD SCH (10:08)
[2017-08-27] MEDS: MIRTAZAPINE 15 MG TABLET (FP) PO SCH (21:32)
[2017-08-27] MEDS: THIAMINE HCL 100 MG TABLET (FP) PO SCH (21:32)
[2017-08-27] MEDS: risperiDONE 0.5 MG TABLET (FP) PO SCH (21:32)
[2017-08-28] MEDS: PRENATAL VITAMINS W/ FOLIC ACID TABLET (FP) PO SCH ×2 (10:02→10:06)
[2017-08-28] MEDS: NICOTINE 14 MG/24 HOURS TOPICAL PATCH TD SCH (10:02)
[2017-08-28] MEDS ORDERED: PT OWN MED DRAWER 7, Y5N ONE ×2 (19:41→23:32)
[2017-08-28] MEDS: MIRTAZAPINE 15 MG TABLET (FP) PO SCH (21:31)
[2017-08-28] MEDS: risperiDONE 0.5 MG TABLET (FP) PO SCH (21:32)
[2017-08-28] MEDS: THIAMINE HCL 100 MG TABLET (FP) PO SCH (21:32)
[2017-08-29] MEDS: PRENATAL VITAMINS W/ FOLIC ACID TABLET (FP) PO SCH (09:35)
[2017-08-29] MEDS: NICOTINE 14 MG/24 HOURS TOPICAL PATCH TD SCH (09:35)
[2017-08-29] MEDS ORDERED: PT OWN MED DRAWER 7, Y5N ONE (09:38)
[2017-08-29] MEDS: THIAMINE HCL 100 MG TABLET (FP) PO SCH (22:14)
[2017-08-29] MEDS: risperiDONE 0.5 MG TABLET (FP) PO SCH (22:14)
[2017-08-29] MEDS: MIRTAZAPINE 15 MG TABLET (FP) PO SCH (22:14)
[2017-08-30] MEDS: PRENATAL VITAMINS W/ FOLIC ACID TABLET (FP) PO SCH (10:06)
[2017-08-30] MEDS: NICOTINE 14 MG/24 HOURS TOPICAL PATCH TD SCH (10:07)
[2017-08-30] MEDS: risperiDONE 0.5 MG TABLET (FP) PO SCH (21:35)
[2017-08-30] MEDS: MIRTAZAPINE 15 MG TABLET (FP) PO SCH (21:35)
[2017-08-30] MEDS: THIAMINE HCL 100 MG TABLET (FP) PO SCH (21:35)
[2017-08-31] MEDS: NICOTINE 14 MG/24 HOURS TOPICAL PATCH TD SCH (10:17)
[2017-08-31] MEDS: PRENATAL VITAMINS W/ FOLIC ACID TABLET (FP) PO SCH (10:17)
[2017-08-31] MEDS: THIAMINE HCL 100 MG TABLET (FP) PO SCH (21:03)
[2017-08-31] MEDS: risperiDONE 0.5 MG TABLET (FP) PO SCH (21:03)
[2017-08-31] MEDS: MIRTAZAPINE 15 MG TABLET (FP) PO SCH (21:03)
[2017-09-01] MEDS: PRENATAL VITAMINS W/ FOLIC ACID TABLET (FP) PO SCH (10:24)
[2017-09-01] MEDS: NICOTINE 14 MG/24 HOURS TOPICAL PATCH TD SCH (10:24)
[2017-09-01] MEDS: THIAMINE HCL 100 MG TABLET (FP) PO SCH (21:37)
[2017-09-01] MEDS: risperiDONE 0.5 MG TABLET (FP) PO SCH (21:37)
[2017-09-01] MEDS: MIRTAZAPINE 15 MG TABLET (FP) PO SCH (21:37)
[2017-09-02] MEDS: PRENATAL VITAMINS W/ FOLIC ACID TABLET (FP) PO SCH (09:31)
[2017-09-02] MEDS: NICOTINE 14 MG/24 HOURS TOPICAL PATCH TD SCH (10:30)
--- NOTE | 2017-09-02 15:41 | PN ---
[facility] Progress Note (SOAP) Subjective: discoid psoriasis, requesting aveeno soap and steroid cream Objective: 09/02/17 15:40 Vital Signs - 24 hr 09/02/17 09/02/17 00:30 03:30 Respiratory 18 18 Rate labs reviewed Assessment: 09/02/17 15:41 psoriasis - aveeno soap, hydrocortisone cream
[2017-09-02] MEDS ORDERED: COLLOIDAL OATMEAL 1 BAR EACH TP PRN (17:30)
[2017-09-02] MEDS: TRIAMCINOLONE ACET 0.5% CREAM 15 GM TUBE TP SCH (17:51)
[2017-09-02] MEDS: AMMONIUM LACTATE 12% LOTION 225 GM BOTTLE TP SCH (17:52)
[2017-09-02] MEDS: MIRTAZAPINE 15 MG TABLET (FP) PO SCH (21:50)
[2017-09-02] MEDS: risperiDONE 0.5 MG TABLET (FP) PO SCH (21:51)
[2017-09-02] MEDS: THIAMINE HCL 100 MG TABLET (FP) PO SCH (21:51)
[2017-09-03] MEDS: NICOTINE 14 MG/24 HOURS TOPICAL PATCH TD SCH (10:32)
[2017-09-03] MEDS: PRENATAL VITAMINS W/ FOLIC ACID TABLET (FP) PO SCH (10:32)
[2017-09-03] MEDS: TRIAMCINOLONE ACET 0.5% CREAM 15 GM TUBE TP SCH (10:32)
[2017-09-03] MEDS: AMMONIUM LACTATE 12% LOTION 225 GM BOTTLE TP SCH (10:32)
[2017-09-03] MEDS: THIAMINE HCL 100 MG TABLET (FP) PO SCH (21:33)
[2017-09-03] MEDS: MIRTAZAPINE 15 MG TABLET (FP) PO SCH (21:34)
[2017-09-03] MEDS: risperiDONE 0.5 MG TABLET (FP) PO SCH (21:34)
[2017-09-04] MEDS: PRENATAL VITAMINS W/ FOLIC ACID TABLET (FP) PO SCH (10:09)
[2017-09-04] MEDS: TRIAMCINOLONE ACET 0.5% CREAM 15 GM TUBE TP SCH (10:09)
[2017-09-04] MEDS: NICOTINE 14 MG/24 HOURS TOPICAL PATCH TD SCH (10:10)
[2017-09-04] MEDS: AMMONIUM LACTATE 12% LOTION 225 GM BOTTLE TP SCH (10:10)
[2017-09-04] MEDS: THIAMINE HCL 100 MG TABLET (FP) PO SCH (22:00)
[2017-09-04] MEDS: MIRTAZAPINE 15 MG TABLET (FP) PO SCH (22:01)
[2017-09-04] MEDS: risperiDONE 0.5 MG TABLET (FP) PO SCH (22:04)
[2017-09-05] MEDS ORDERED: PT OWN MED DRAWER 7, Y5N ONE ×2 (09:30→10:21)
[2017-09-05] MEDS: PRENATAL VITAMINS W/ FOLIC ACID TABLET (FP) PO SCH (10:18)
[2017-09-05] MEDS: NICOTINE 14 MG/24 HOURS TOPICAL PATCH TD SCH (10:18)
[2017-09-05] MEDS: AMMONIUM LACTATE 12% LOTION 225 GM BOTTLE TP SCH (11:37)
[2017-09-05] MEDS: TRIAMCINOLONE ACET 0.5% CREAM 15 GM TUBE TP SCH (12:00)
[2017-09-05] MEDS: THIAMINE HCL 100 MG TABLET (FP) PO SCH (21:50)
[2017-09-05] MEDS: risperiDONE 0.5 MG TABLET (FP) PO SCH (21:50)
[2017-09-05] MEDS: MIRTAZAPINE 15 MG TABLET (FP) PO SCH (21:51)
[2017-09-06] MEDS: PRENATAL VITAMINS W/ FOLIC ACID TABLET (FP) PO SCH (09:34)
[2017-09-06] MEDS: AMMONIUM LACTATE 12% LOTION 225 GM BOTTLE TP SCH (09:35)
[2017-09-06] MEDS: NICOTINE 14 MG/24 HOURS TOPICAL PATCH TD SCH (09:35)
[2017-09-06] MEDS: TRIAMCINOLONE ACET 0.5% CREAM 15 GM TUBE TP SCH (09:35)
[2017-09-06] MEDS: MIRTAZAPINE 15 MG TABLET (FP) PO SCH (21:31)
[2017-09-06] MEDS: THIAMINE HCL 100 MG TABLET (FP) PO SCH (21:31)
[2017-09-06] MEDS: risperiDONE 0.5 MG TABLET (FP) PO SCH (21:31)
[2017-09-07] MEDS: NICOTINE 14 MG/24 HOURS TOPICAL PATCH TD SCH (09:55)
[2017-09-07] MEDS: PRENATAL VITAMINS W/ FOLIC ACID TABLET (FP) PO SCH (09:55)
[2017-09-07] MEDS: AMMONIUM LACTATE 12% LOTION 225 GM BOTTLE TP SCH (09:55)
[2017-09-07] MEDS: TRIAMCINOLONE ACET 0.5% CREAM 15 GM TUBE TP SCH (09:55)
[2017-09-07] MEDS: MIRTAZAPINE 15 MG TABLET (FP) PO SCH (21:25)
[2017-09-07] MEDS: risperiDONE 0.5 MG TABLET (FP) PO SCH (21:26)
[2017-09-07] MEDS: THIAMINE HCL 100 MG TABLET (FP) PO SCH (21:26)
[2017-09-08 07:02] VITALS: PULSE 69
--- NOTE | 2017-09-08 09:05 | PN ---
Psychiatric Progress Note Vital Signs: Vital Signs Period Temp Pulse Resp BP Sys/Snyder Pulse Ox Last 24 Hr 97.5 F 69 18-18 129/85 Date of Session: 09/08/17 Chief Complaint:: Discharge Note HPI: Patient addressing Alcohol Dependence comorbid with Nicotine Dependence and Major Depressive Disorder and Substance-Induced Mood Disorder Current Medications: Active Medications Generic Name Dose Route Start Last Admin Trade Name Freq PRN Reason Stop Dose Admin Acetaminophen 650 mg 08/15/17 22:44 Tylenol - PO Q4H PRN FEVER Al Hydroxide/Mg Hydroxide 30 ml 08/15/17 22:44 Mylanta Oral Suspension - PO Q6H PRN DYSPEPSIA Colloidal Oatmeal 1 applic 09/02/17 17:30 09/02/17 21:52 Aveeno Soap - TP 1 applic DAILY PRN Administration HYGEINE Eucalyptus/Menthol/Phenol/Sorbitol 1 each 08/15/17 22:44 Cepastat Lozenge - MM Q4H PRN SORE THROAT Guaifenesin 10 ml 08/15/17 22:44 Robitussin Dm - PO Q6H PRN COUGH Hydroxyzine Pamoate 50 mg 08/15/17 22:44 Vistaril - PO Q4H PRN AGITATION Ibuprofen 400 mg 08/15/17 22:44 Motrin - PO Q6H PRN Pain Level 4-6 Lactic Acid 1 applic 09/02/17 17:45 09/07/17 09:55 Lac-Hydrin 12 TP Not Given DAILY CATHERINE Loperamide HCl 4 mg 08/15/17 22:44 Imodium - PO Q6H PRN DIARRHEA Magnesium Citrate 300 ml 08/15/17 22:44 Citroma - PO Q48H PRN CONSTIPATION Magnesium Hydroxide 30 ml 08/15/17 22:44 Milk Of Magnesia - PO DAILY PRN CONSTIPATION Mirtazapine 7.5 mg 08/16/17 22:00 09/07/17 21:25 Remeron - PO 7.5 mg HS CATHERINE Administration Nicotine 14 mg 08/16/17 10:00 09/07/17 09:55 Nicoderm Patch - TD Not Given DAILY CATHERINE Nicotine Polacrilex 2 mg 08/15/17 22:44 Nicorette Gum - BUC Q2H PRN NICOTINE REPLACEMENT RX Multivit/Folic Acid/Iron 1 tab 08/16/17 10:00 09/07/17 09:55 Vitamins (Sjr) - PO 1 tab DAILY CATHERINE Administration Pseudoephedrine/Triprolidine 1 combo 08/15/17 22:44 Actifed - PO TID PRN NASAL CONGESTION Risperidone 0.5 mg 08/16/17 22:00 09/07/17 21:26 Risperdal - PO 0.5 mg HS CATHERINE Administration Thiamine HCl 100 mg 08/16/17 22:00 09/07/17 21:26 Vitamin B1 - PO 100 mg HS CATHERINE Administration Triamcinolone Acetonide 1 applic 09/02/17 17:45 09/07/17 09:55 Aristocort 0.5% Cream - TP Not Given DAILY CATHERINE Current Side Effect: No Lab tests ordered: Yes Lab tests reviewed: Yes Provider note:: Patient will complete this program on 09/09/17. He has met his treatment goals and will continue to address his issues in shelter residential treatment at [facility]. Told writehat from his participation in this program, he has learned to stay focus and make meetings.He responded well to Remeron 7.5 mg po HS and Risperdal 0.5 mg po HS. Scripts for 30 days supply of these medications will be electronically transmitted to [facility] at [address] [place] [address]. He is stable for discharge on 09/09/17 Total face to face time:: 35 Mental Status Exam - Mental Status Exam Alert and Oriented to: Time, Place, Person Cognitive Function: Fair Patient Appearance: Well Groomed Mood: Hopeful, Euthymic Affect: Appropriate Patient Behavior: Cooperative Speech Pattern: Clear Voice Loudness: Normal Thought Process: Intact, Goal Oriented Thought Disorder: Not Present Hallucinations: Denies Suicidal Ideation: Denies Homicidal Ideation: Denies Insight/Judgement: Fair Sleep: Fair Appetite: Good Muscle strength/Tone: Normal Gait/Station: Normal Psychiatric Treatment Plan - Problem List (1) Alcohol dependence Current Visit: Yes (2) Nicotine dependence Current Visit: Yes Qualifiers: Nicotine product type: cigarettes Substance use status: in withdrawal Qualified Code(s): F17.213 - Nicotine dependence, cigarettes, with withdrawal (3) MDD (major depressive disorder) Current Visit: Yes Comment: Self reports. (4) Substance induced mood disorder Current Visit: Yes (5) Psoriasis Current Visit: No Initial treatment plan: Patient will be discharged tomorrow and referred to [facility] for shelter residential treatment
[2017-09-08] MEDS: TRIAMCINOLONE ACET 0.5% CREAM 15 GM TUBE TP SCH (10:33)
[2017-09-08] MEDS: PRENATAL VITAMINS W/ FOLIC ACID TABLET (FP) PO SCH (10:52)
[2017-09-08] MEDS: NICOTINE 14 MG/24 HOURS TOPICAL PATCH TD SCH (10:53)
[2017-09-08] MEDS: AMMONIUM LACTATE 12% LOTION 225 GM BOTTLE TP SCH (10:53)
[2017-09-08] MEDS: MIRTAZAPINE 15 MG TABLET (FP) PO SCH (21:36)
[2017-09-08] MEDS: THIAMINE HCL 100 MG TABLET (FP) PO SCH (21:36)
[2017-09-08] MEDS: risperiDONE 0.5 MG TABLET (FP) PO SCH (21:36)
[2017-09-09 06:51] VITALS: BP 133/93; TEMP 94.4
[2017-09-09] MEDS: PRENATAL VITAMINS W/ FOLIC ACID TABLET (FP) PO SCH (09:13)
[2017-09-09] MEDS: AMMONIUM LACTATE 12% LOTION 225 GM BOTTLE TP SCH (09:13)
[2017-09-09] MEDS: TRIAMCINOLONE ACET 0.5% CREAM 15 GM TUBE TP SCH (09:13)
[2017-09-09] MEDS: NICOTINE 14 MG/24 HOURS TOPICAL PATCH TD SCH (09:14)
== END 2017-09-09 09:25 | disposition home or self-care (01) | DRG 772 ==
LOC: YASAS 18:18 → Y3W 19:50
PROVIDERS: ADMIT Psychiatry & Neurology Psychiatry; ATTEND Psychiatry & Neurology Psychiatry
PROC: HZ42ZZZ Group Counseling for Substance Abuse Treatment, Cognitive-Behavioral (ICD-10-PCS; principal; 2017-08-15)
DX: F10.20 Alcohol dependence, uncomplicated (principal); F17.213 Nicotine dependence, cigarettes, with withdrawal; F33.9 Major depressive disorder, recurrent, unspecified; F19.24 Other psychoactive substance dependence with psychoactive substance-induced mood disorder; L40.8 Other psoriasis